=== PATIENT | male | born 1995 | race African-American/Black ===

== ENCOUNTER 2017-07-21 11:04 | Emergency (ER) | payer SELFPAY ==
[2017-07-21] MEDS ORDERED: Ondansetron HCl/PF 4 MG/2 ML Vial ONE (12:11)
[2017-07-21 12:15] LABS: #Basophils 0.1 thou/uL (0.0-0.2); #Lymphocytes 1.4 thou/uL (1.20-3.40); #Monocytes 0.7 thou/uL (0.11-0.59); #Neutrophils 5.9 thou/uL (1.40-6.50); %Eosinophils 0.5 % (0.0-10.0); %Lymphocytes 16.9 % (21.0-51.0); %Monocytes 8.7 % (0.0-10.0); %Neutrophils 72.9 % (42.0-75.0); Hemoglobin 16.8 g/dL (14.0-18.0); Mean Corpuscular HGB CONC 34.5 g/dL (32.0-36.0); Mean Corpuscular Hemoglobin 30.5 pg (27.0-31.0); Mean Corpuscular Volume 88.4 fl (80.0-94.0); Mean Platelet Volume 7.4 fL (7.4-10.4); Platelet Count 184 thou/uL (130-400); RBC Distribution Width 11.8 % (11.5-14.5); White Blood Cell (WBC) Count 8.1 thou/uL (4.8-10.8)
[2017-07-21 12:40] LABS: ALT (SGPT) 14 U/L (8-55); AST (SGOT) 16 U/L (5-34); Albumin 4.4 g/dL (3.5-5.0); Alkaline Phosphatase 74 U/L (40-150); Anion Gap 9 mmol/L (10-20); BUN (Urea Nitrogen) 11 mg/dL (8.9-20.6); Bilirubin, Total 1.6 mg/dL (0.2-1.2); Calc. Creatinine Clearance 0 mL/min (70-130); Calcium 9.9 mg/dL (7.8-10.44); Carbon Dioxide 29 mmol/L (22-29); Chloride 103 mmol/L (98-107); Estimated GFR-MDRD Greater than 90; Globulin 3.2 g/dL (2.4-3.5); Glucose 111 mg/dL (70-105); Lipase 7 U/L (8-78); Potassium 3.7 mmol/L (3.5-5.1); Protein, Total 7.6 g/dL (6.0-8.3); Sodium 137 mmol/L (136-145)
[2017-07-21 14:03] LABS: Bilirubin Negative (Negative); Blood, Urine Negative (Negative); Clarity CLEAR (Clear); Glucose, Urine (Dipstick) Negative (Negative); Leukocyte Negative (Negative); Nitrite Negative (Negative); Protein, Urine (Dipstick) Negative (Neg-Trace); Specific Gravity, Urine 1.022 (1.002-1.036); Urobilinogen 0.2 mg/dL (0.2-1.0)
--- NOTE | 2017-07-21 14:53 | CT ---
CONTRAST ENHANCED CT IMAGES ABDOMEN AND PELVIS: HISTORY: Abdominal pain. FINDINGS: Contrast enhanced CT images of the abdomen and pelvis were obtained after administration of IV and or al contrast. The lung bases are unremarkable. No evidence of free intraperitoneal air is seen. The liver, spleen, pancreas, and gallbladder are unremarkable. Adrenal glands and kidneys unremarkab le. No dilated loops of small bowel seen. A normal appendix is seen. There is abnormal thickening seen in the cecum as well as areas of colonic thickening in the descendi ng colon, sigmoid colon, and rectum. This is compatible with colitis. No evidence of paraaortic lymphadenopathy seen. IMPRESSION: Areas of thickening of the mucosa in the cecum as well as portions of the descending colon, sigmoid c olon, and rectum. POS: [id number]
[2017-07-21] MEDS ORDERED: ISOVUE-370 76%-LOCM 1 ML ONE (15:41)
[2017-07-21] MEDS ORDERED: Iopamidol 370 76% 50 ML VIAL FS ONE (15:41)
== END 2017-07-21 15:13 | disposition home or self-care (01) ==
LOC: ERS 11:04
DX: K52.9 Noninfective gastroenteritis and colitis, unspecified (principal); F17.210 Nicotine dependence, cigarettes, uncomplicated
CPT/HCPCS: 74177; 80053; 81003; 83690; 85025; 96361; 96374; J2405

== ENCOUNTER 2019-07-26 21:34 | Emergency (ER) | payer SELFPAY | END 2019-07-26 22:04 | disposition home or self-care (01) | LOC: ERS 21:34 | DX: R05 Cough (principal); F17.210 Nicotine dependence, cigarettes, uncomplicated | CPT/HCPCS: 99283 ==

== ENCOUNTER 2021-01-24 15:54 | Emergency (ER) | payer SELFPAY ==
[2021-01-25 12:01] LABS: SARS-CoV-2 PCR by NAA Not Detected (NotDetected)
== END 2021-01-24 18:40 | disposition home or self-care (01) ==
LOC: ERS 15:54
DX: J02.9 Acute pharyngitis, unspecified (principal); F17.210 Nicotine dependence, cigarettes, uncomplicated; Z20.822 Contact with and (suspected) exposure to COVID-19
CPT/HCPCS: 87081; 87430; 99283; U0003; U0005

== ENCOUNTER 2021-09-27 21:12 | Emergency (ER) | payer SELFPAY | END 2021-09-27 21:48 | disposition home or self-care (01) | LOC: ERS 21:12 | DX: S43.402A Unspecified sprain of left shoulder joint, initial encounter (principal); F17.210 Nicotine dependence, cigarettes, uncomplicated; X58.XXXA Exposure to other specified factors, initial encounter; Y93.72 Activity, wrestling | CPT/HCPCS: 99283 ==